=== PATIENT | male | born 1950 | race Caucasian/White ===

== ENCOUNTER 2023-12-26 20:06 | Inpatient (IN) | payer MEDICARE, OTHER, SELFPAY ==
[2023-12-26] VITALS (7 sets, daily range): BP systolic 131–166; BP diastolic 71–98; BMI 31.5
[2023-12-26 15:21] LABS: % Basophils 1.4 % (0-2); % Eosinophils 9.4 % (0-6); % Immature Granulocytes 0.5 % (0-0.5); % Lymphocytes 29.4 % (20.5-51.1); % Monocytes 13.3 % (1.7-9.3); Absolute Basophils 0.1 10^3/uL (0-0.2); Absolute Eosinophils 0.6 10^3/uL (0-0.7); Absolute Lymphocytes 1.9 10^3/uL (1.2-3.4); Absolute Monocytes 0.9 10^3/uL (0.1-0.6); Hematocrit 39.2 % (39.0-52.0); Hemoglobin 13.5 g/dL (13.0-18.0); Mean Corp Hgb Conc. 34.4 g/dL (33.0-37.0); Mean Corpuscular Hgb 31.8 pg (27.0-31.0); Mean Corpuscular Volume 92.5 fL (80.0-94.0); Mean Platelet Volume 10.1 fL (7.4-10.4); Nucleated Red Blood Cells % 0 % (-); Platelet Count 206 10^3/uL (130-400); Red Blood Cell Count 4.24 10^6/uL (4.70-6.10); Red Cell Dist. Width 14.1 % (11.5-14.5); White Blood Cell Count 6.5 10^3/uL (4.8-10.8)
[2023-12-26 15:30] LABS: ALT (SGPT) 38 U/L (0-50); AST (SGOT) 27 U/L (17-59); Albumin 4.2 g/dl (3.5-5.0); Alkaline Phosphatase 75 U/L (38-126); Blood Urea Nitrogen 13 mg/dl (9-20); Calcium 8.7 mg/dl (8.4-10.2); Carbon Dioxide 30 mmol/L (22-30); Chloride 103 mmol/L (98-107); Glucose 119 mg/dl (70-99); Potassium 4.3 mmol/L (3.5-5.1); Sodium 140 mmol/L (135-145); Total Bilirubin 0.4 mg/dl (0.2-1.3); Total Protein 6.4 g/dl (6.3-8.2); eGFR > 60.00
[2023-12-26 15:33] LABS: COVID-19 Antigen Negative (Negative)
--- NOTE | 2023-12-26 16:19 | ED.GENMED ---
History of Present Illness
General
Chief Complaint: Breathing Problem
Time Seen by Provider: 12/26/23 16:18
Travel History
Have you had any contact with someone who has COVID-19?: No
Do you have any symptoms of coronavirus? Fever > 100 degrees, chills, cough, shortness of breath, sore throat, loss of taste or smell, muscle aches, or headache?: No
History of Present Illness
History of Present Illness:
HPI: The patient presents due to shortness of breath that started over the past 24 hours. This is associated with cough. He had a similar episode about a month ago diagnosed with bronchitis. Initially presented to triage in no distress however on
my initial evaluation at 4:25 PM, he does appear to be mild to moderate distress. He smoked until 1979. He states that he had lobar pneumonia in about 1979 and had a valve replacement about 2 years ago.
EXAM:
GENERAL: Mild to moderate respiratory
HEENT: Moist oral mucosa
CARDIOVASCULAR: No murmurs, normal heart rate and rhythm, No chest wall tenderness
PULMONARY: Mild to moderate respiratory distress, conversational dyspnea, very decreased breath sounds with scant wheeze, wet sounding cough
ABDOMEN: Soft with no peritoneal signs, no tenderness
NEUROLOGIC: Excellent strength all extremities, no coordination deficits
PSYCHIATRIC: Appropriate mental status, normal insight and judgement
EXTREMITIES: Nontender, no edema, moves all extremities equally
SKIN: No rash, no lesions
ED COURSE:
4:25 PM: I initially evaluated patient
NUMBER AND COMPLEXITY OF PROBLEMS ADDRESSED AT THE ENCOUNTER
� Chronic conditions affecting care: High blood pressure, hyperlipidemia, pericarditis, valve surgery
� Acute Exacerbation and/or Progression of Chronic Illness: This is an acute problem but is had similar episode in the past
� Differential Diagnosis includes: Acute bronchitis, pneumonia, heart failure unlikely
AMOUNT AND/OR COMPLEXITY OF DATA TO BE REVIEWED AND ANALYZED
� I performed an independent evaluation of and my interpretation is:
EKG: Sinus 79, left axis deviation, nonspecific ST abnormality
CT:
X-rays: Chest x-ray clear
Laboratory Studies: CBC unremarkable, chemistries unremarkable, COVID/flu-negative,
Other:
� Review of other/old records: The patient was seen in the ED 1 month ago with diagnosis of
� Clinical information was obtained by an independent historian: I spoke to at bedside who states that Dr. Roberts is his hotel front desk clerk
� Prescriptions/Medications Considered but not given:
� Further testing considered but not performed:
RISK OF COMPLICATIONS AND/OR MORBIDITY OR MORTALITY OF PATIENT MANAGEMENT
� Social determinants of health affecting care: Lives at home
� Discussion with other providers: Hospitalist for admission at 5:20 PM.
� Escalation of care including admission/observation vs risk of discharge considered: Patient was given 3 DuoNebs and Solu-Medrol just after my initial evaluation as he had rather significant conversational dyspnea with very
decreased breath sounds. His room air sats with good waveform range anywhere from 87 to 97%. For the most part sats have been low despite initial documentation of 99%. Without oxygen, sats primarily in the 87 to 91% range. With oxygen he does
come up to 94%. He feels some improvement after nebs and Solu-Medrol were given. However he does not appear well enough to return home.
Past History
Past History
ED Past Medical History: HTN, Hypercholesterolemia and Valvular disease
ED Past Surgical History: Cardiac (Mitral valve repair)
Social History
Tobacco: Former smoker
Alcohol: None
Drug: None
Personal:
Living: with family
Employment: Employed
Family History
Family History: Negative Early CAD
Phy Exam
Physical Exam
Physical Exam:
See HPI
Scores
Heart Failure Risk
Heart Failure Risk Score: Not Applicable
Course
Orders/Labs/Results
Orders:
Orders
12/26/23 15:02
Electrocardiogram (*1) Urgent
Reason for Study: Shortness of Breath
EKG- Treatment ONCE
12/26/23 15:05
COVID-19 Antigen Urgent
Source: Nasal Swab
Complete Blood Count/With Diff Urgent
Comprehensive Metabolic Panel Urgent
Influenza A+B Rapid Molecular Urgent
BJ Source: Nasal Swab
Specimen Description:
12/26/23 16:25
Ipratropium/Albuterol Sulfate [Duoneb] 3 ml INH R NOW ONE
Ipratropium/Albuterol Sulfate [Duoneb] 9 ml .ROUTE .STK-MED ONE
12/26/23 16:26
Ipratropium/Albuterol Sulfate [Duoneb] 3 ml INH R NOW STA
Ipratropium/Albuterol Sulfate [Duoneb] 3 ml INH R NOW STA
MethylPREDNISolone PF [Solu-Medrol Pf] 125 mg IV NOW STA
12/26/23 16:31
CR Chest Portable - 1 View Urgent
Comment:
Reason For Exam: resp distress wheeze
Reason Study Needs to be Portable: Patient Unstable
Abnormal Lab Results
12/26/23
15:05
RBC 4.24 L 10^6/uL
(4.70-6.10)
MCH 31.8 H pg
(27.0-31.0)
Absolute Monos (auto) 0.9 H 10^3/uL
(0.1-0.6)
Monocytes % 13.3 H %
(1.7-9.3)
Eosinophils % 9.4 H %
(0-6)
Glucose 119 H mg/dl
(70-99)
12/26/23 15:05
12/26/23 15:05
Vital Signs
Initial and Last Documented VS:
Initial Vital Signs
Temp Pulse Resp BP Pulse Ox
98.2 F 80 18 162/96 99
12/26/23 14:59 12/26/23 14:59 12/26/23 14:59 12/26/23 14:59 12/26/23 14:59
Last Documented Vital Signs
Temp Pulse Resp BP Pulse Ox
98.2 F 80 18 162/96 99
12/26/23 14:59 12/26/23 14:59 12/26/23 14:59 12/26/23 14:59 12/26/23 14:59
*Critical Care Note
Total Time (30-74mins, 75-104mins- exclusive of procedures): Not Applicable
ED Attending Note
-
Portions of this chart may have been created with voice recognition software.� Occasional wrong word or��sound alike� substitutions may have occurred due to the inherent limitations of voice recognition software.
Discharge Plan
Departure
Patient Disposition: Admit
Date of Disposition: 12/26/23
Time of Disposition: 17:19
Presentation/result/management discussed w/ accepting MD/DO: Hospitalist
Discharge Problem:
Bronchitis
Prescriptions:
No Action
acetaminophen 325 MG tablet
650 mg PO 5/D
pravastatin 40 MG tablet
40 mg PO DAILY
amlodipine 5 MG tablet
5 mg PO DAILY
aspirin 81 MG tablet,delayed release (DR/EC)
81 mg PO DAILY
pantoprazole 40 MG tablet,delayed release (DR/EC)
40 mg PO DAILY
docusate sodium 100 MG capsule
200 mg PO BID
bisacodyl [Laxative (bisacodyl)] 5 MG tablet,delayed release (DR/EC)
5 mg PO DAILYPRN PRN (Reason: constipation)
metoprolol succinate 25 MG tablet extended release 24 hr
25 mg PO DAILY
multivitamin with folic acid [Tab-A-Artemio] 1 TABLET tablet
1 tab PO DAILY
furosemide 40 MG tablet
40 mg PO DAILY Qty: 30 11RF
cephalexin 500 MG capsule
500 mg PO QID Qty: 28 0RF
albuterol sulfate 2.5 mg /3 mL (0.083 %) solution for nebulization
2.5 mg inhalation Q4H PRN (Reason: shortness of breath or wheezing) Qty: 90 0RF
prednisone 10 mg tablet
10 mg PO QID Qty: 35 0RF
Rx Instructions:
4 pills a day for 3 days, 3 pills a day for 3 days, 2 pills a day for 3 days, 1 pill a day for 3 days,
Referrals:
UNKNOWN - PT NOT,INTERVIEWE [Family Provider] -
Interventions
Interventions:
*General Assessment Last Done: 12/26/23 14:59
*ED COVID-19 Vaccine History Last Done: 12/26/23 14:59
[2023-12-26] MEDS: SOLU-MEDROL PF 125 MG IV (16:33)
[2023-12-26] MEDS: DUONEB 3 ML INH ×4 (16:33→20:40)
--- NOTE | 2023-12-26 17:27 | HPS.HSE ---
Addendum entered and electronically signed by Kieran Chatterjee MD 12/26/23 18:26:
I saw and examined the patient.
The TALEND DEVELOPER's note was reviewed and I agree with the note.
Comment:
73-year-old male past medical history of valve replacement, pericarditis, tobacco abuse, who is presenting with acute altered shortness of breath. Patient stated shortness of breath woke him up from sleep at approximately 3 AM. Patient states of
severe cough associated with mucus production. Denies any chest pain or chest pressure. Denies any lower extremity edema. States chronic cough especially in the morning with last for approximately 30 minutes. States of postnasal drip.
General no acute distress, able to speak in complete sentences, not tachypneic
HEENT negative for stridor
Cardiac S1-S2 regular rate rhythm
Lungs positive expiratory bilateral wheezing, decreased aeration,
Abdomen positive bowel sounds soft nontender nondistended
Extremities no edema
Neuro awake alert and oriented
Impression
Acute hypoxic respiratory insufficiency likely secondary bronchitis versus rule out PE versus ACS
Bronchitis
Primary hypertension
History of pericarditis
History of tobacco abuse
Hyperlipidemia
Plan
Status post 125 mg Solu-Medrol
Start patient on Decadron 4 every 8 starting tomorrow
Bronchodilators
Sputum sample
Started on azithromycin
Check CT chest to rule out pulmonary embolism, pericardial etiology and or aortic etiology. Low likelihood.
Trend troponin
EKG with normal sinus rhythm. No acute ST or T wave changes. Incomplete right bundle branch block. No significant change compared to 11/25/2023.
Gentle IV fluids
Pulmonary evaluation
Continue home meds
DVT prophylaxis
Discussed with spouse at bedside in detail
I spent a total of 78 minutes with the patient or on the floor. More than 50% of this time involved counseling and coordination of care.
Original Note:
Family Physician
-
Family Physician: INTERVIEWE UNKNOWN - PT NOT
Chief Complaint
-
Shortness of breath, cough, wheezing
History of Present Illness
73-year-old male complaining of increased shortness of breath over the past 24 hours associated with a cough. Patient reports he woke up at 3 AM with wheezing, cough and shortness of breath only relieved for 2 hours with his albuterol nebulizer.
He reports this is similar to his episode of bronchitis he had approximately 1 month ago where he was given a Medrol Dosepak in the emergency room. He reports getting bronchitis every winter for the last several years. He also reports daily a.m.
chronic coughing he denies fever, chills, chest pain, palpitations, abdominal pain, nausea, vomiting, diarrhea, urinary symptoms.
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
Medical History
Past Medical History
Past Medical History: Reports Other
Additional Past Medical History:
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
HTN
HLD
mitral valve ring repair 2021
bronchitis
cardiomyopathy
former smoker until 1979.
Past Surgical History: Reports Other (MVR repair 2021, pericardial effusion with pericardiocentesis 360 cc)
Social History
Tobacco: Former Smoker (11 years 1 pack a day quit 1979)
Alcohol: Daily (4 beers 3 days a week)
Drug: None
Personal:
Living: With Family
Employment: Retired
Family History
Family History: Early CAD (Father GA age 52) and Other (Mother GA and unknown type of cancer)
Allergies / Home Medications
Allergies reflects when Allergies were last updated in [employer].
Home Medications with original date entered in [employer]
Allergy/Medication List:
Allergies
Allergy/AdvReac Type Severity Reaction Status Date / Time
Penicillins Allergy Unknown Verified 11/25/23 22:07
Home Medications
acetaminophen 500 mg tablet (Tylenol Extra Strength) 1,000 mg PO DAILYPRN PRN mild pain 12/26/23
albuterol sulfate 2.5 mg/3 mL (0.083 %) solution for nebulization 2.5 mg inhalation R QIDPRN PRN sob 12/26/23
albuterol sulfate 90 mcg/actuation aerosol inhaler 2 puff inhalation R Q4HPRN PRN sob/wheezing 12/26/23
amlodipine 5 mg tablet 5 mg PO DAILY 12/26/23
aspirin 81 mg tablet,delayed release 81 mg PO DAILY 12/26/23
glucosamine-chondroitin 250 mg-200 mg tablet (Osteo Bi-Flex) 1 tab PO DAILY 12/26/23
pantoprazole 40 mg tablet,delayed release 40 mg PO DAILY 12/26/23
pravastatin 80 mg tablet 80 mg PO DAILY 12/26/23
therapeutic multivitamin 1 tab PO DAILY 12/26/23
Review of Systems
-
History Source: Patient and Family ()
A 12 point ROS was completed and negative except as noted: Yes
Constitutional: Denies Fever or Fatigue
EENT: Denies Sore Throat or Runny Nose
Respiratory: Reports Cough (Productive yellow in color) and Trouble Breathing (Wheezing)
Cardiac: Denies Chest Pain, Diaphoresis, Palpitations or Syncope
Abdomen/GI: Denies Abdominal Pain, Nausea, Vomiting, Diarrhea, Constipated, Bloody Stools or Black Stools
: Denies Dysuria, Frequency, Flank Pain, Incontinence, Difficulty Voiding or Urgency
Musculoskeletal: Denies Joint Pain or Edema
Skin: Denies Itching or Rash
Neurological: Denies Dizzy, Headache or Weakness
Endocrine: Reports No Symptoms
Hematologic/Lymphatic: Reports No Symptoms
Psych: Reports Calm
Physical Exam
Vital Signs
Vital Signs
Temp Pulse Resp BP Pulse Ox
98.2 F 106 19 135/95 94
12/26/23 14:59 12/26/23 17:15 12/26/23 17:15 12/26/23 17:14 12/26/23 17:24
Physical Exam
General: Comfortable, Conversant and Obese; No Pain, Fever or Chills
HEENT: NormoCephalic, Anicteric, PERRLA, P[place]on Conjunctivae, No Ptosis and Oxygen (2 lnc )
Respiratory: Wheezes (Diffuse expiratory) and Decreased Breath Sounds; No Rales or Rhonchi
Cardiac: S1/S2 and Tachycardia; No Murmur, Rub, Gallop or Peripheral Edema
Breast: Deferred by me
GI: Soft, Non Tender, Non Distended, Normal Bowel Sounds and No Hepatosplenomegaly
Rectal: Deferred by Provider
Genito-urinary: Deferred by me
Musculoskeletal: No Clubbing, No Cyanosis and No Edema
Skin: Warm and Dry; No Rash or Jaundice
Neuro: AO x 3, No Motor Deficits, Nonfocal/grossly intact and No Sensory Deficits; No Slurred Speech, Facial Droop, Tremors or Sedated
Psych: Calm
Laboratory Results
-
12/26/23 15:05
12/26/23 15:05
Laboratory Results
Total Bilirubin 0.4 mg/dl (0.2-1.3) 12/26/23 15:05
AST 27 U/L (17-59) 12/26/23 15:05
ALT 38 U/L (0-50) 12/26/23 15:05
Alkaline Phosphatase 75 U/L (38-126) 12/26/23 15:05
Impression/Plan
-
Impression/plan:
Admit to MedSurg
#Acute hypoxic resp insuff 12/10 to Acute bronchitis
#Bronchitis, treated 1 month ago/Former smoker until 1979
87% RA, 94% on 2lnc
COVID/FLU -negative
-DuoNebs scheduled and as needed
-IV Decadron 4 mg every 8 hours
-Sputum culture
-Zithromax 500 then to 50 mg daily
-Consult pulmonary
-Check troponins
-Check CT PE study
CXR: No acute cardiopulmonary process
#HTN�benign
135/95
-Continue amlodipine 5 mg daily, aspirin 81 mg daily
#HLD
-Check lipid profile
-Continue pravastatin
#Pericarditis Hx with cardiac tamponade Hx/Rocky's syndrome
#Cardiomyopathy
#MVR 2021
2D echo 10/14/2022: EF 40-45%, mild global hypokinesis, mild reduced systolic function, mild LVH, diastolic function indeterminant, status post number 23 mm mitral valve ring repair, trace MR
#GERD
-Continue Protonix 40 mg daily
#Obesity due to excess calorie consumption
Healthy heart diet, weight loss recommended
DVT prophylaxis
Subcu Lovenox bowel CT PE chest pending
Full code
--- NOTE | 2023-12-26 18:08 | PHANOTE ---
Addendum entered by Gomez Torrez 12/26/23 18:25:
12/26/2023, med rec tech, pt. is unsure of Amlodipine strength but states that he takes one tablet daily.
Original Note:
12/26/2023, med rec tech, spoke to pt. to obtain their med. history; pt. states to be taking Amlodipine 5 mg daily; however, I could not find this med. in pt.'s pharmacy fill data or using [facility] records so I was not able to confirm it. Pt.'s pharmacy
([address], [place] [address]; phone: [phone]) was closed at time of interview.
[2023-12-26] MEDS: ZITHROMAX 500 MG PO (18:26)
[2023-12-26] MEDS: NSS 1000 IV (18:56)
[2023-12-26 19:16] LABS: Troponin I 0.013 ng/ml
--- NOTE | 2023-12-26 22:27 | PTCARENOTE ---
Pt arrived to 3W from ED via stretcher. Pt independent from stretcher to bed, vitals obtained and stable. Pt AAOX3, oriented to room and call dia within reach. Pleasant and cooperative, will continue to monitor.
[2023-12-27 00:05] LABS: Troponin I 0.016 ng/ml
[2023-12-27 03:33] VITALS: BP 162/91
[2023-12-27 05:50] LABS: % Basophils 0.4 % (0-2); % Eosinophils 0.2 % (0-6); % Immature Granulocytes 0.6 % (0-0.5); % Lymphocytes 13.5 % (20.5-51.1); % Monocytes 2.9 % (1.7-9.3); % Neutrophils 82.4 % (42.2-75.2); Absolute Lymphocytes 0.7 10^3/uL (1.2-3.4); Absolute Monocytes 0.2 10^3/uL (0.1-0.6); Absolute Neutrophils 4.3 10^3/uL (1.4-6.5); Hematocrit 39.2 % (39.0-52.0); Hemoglobin 13.5 g/dL (13.0-18.0); Mean Corp Hgb Conc. 34.4 g/dL (33.0-37.0); Mean Corpuscular Hgb 31.9 pg (27.0-31.0); Mean Corpuscular Volume 92.7 fL (80.0-94.0); Mean Platelet Volume 10.4 fL (7.4-10.4); Nucleated Red Blood Cells % 0 % (-); Platelet Count 203 10^3/uL (130-400); Red Blood Cell Count 4.23 10^6/uL (4.70-6.10); Red Cell Dist. Width 13.9 % (11.5-14.5); White Blood Cell Count 5.2 10^3/uL (4.8-10.8)
[2023-12-27 06:00] VITALS: BMI 31.5
[2023-12-27 06:08] LABS: Troponin I 0.013 ng/ml
[2023-12-27 06:39] LABS: Blood Urea Nitrogen 15 mg/dl (9-20); Calcium 8.9 mg/dl (8.4-10.2); Carbon Dioxide 27 mmol/L (22-30); Chloride 102 mmol/L (98-107); Estimated Creatinine Clearance > 125 ml/min; Glucose 165 mg/dl (70-99); HDL Cholesterol 60 mg/dl; LDL Cholesterol, Calculated 60 mg/dl; Potassium 4.4 mmol/L (3.5-5.1); Sodium 137 mmol/L (135-145); Total Cholesterol 129 mg/dl (50-199); Triglyceride 48 mg/dl (10-149); Very Low Density Lipoprotein 9 mg/dl (0-30); eGFR > 60.00
[2023-12-27 07:00] VITALS: BP 149/99
[2023-12-27] MEDS: DUONEB 3 ML INH ×2 (08:19→11:57)
[2023-12-27] MEDS: PRAVACHOL 80 MG PO (08:54)
[2023-12-27] MEDS: PROTONIX 40 MG PO (08:54)
[2023-12-27] MEDS: DECADRON 4 MG IV (08:55)
[2023-12-27] MEDS: THERAGRAN 1 TABLET PO (08:55)
[2023-12-27] MEDS: ZITHROMAX 250 MG PO (08:55)
[2023-12-27] MEDS: NORVASC 5 MG PO (08:55)
[2023-12-27] MEDS: ASPIR LOW (ENTERIC COATED) 81 MG PO (08:55)
[2023-12-27 09:41] VITALS: BP 157/89; PULSE 89; O2SAT 96
[2023-12-27 09:44] VITALS: BP 157/89; PULSE 89; O2SAT 96
--- NOTE | 2023-12-27 10:02 | PTOTSP ---
PATIENT ABLE TO MOBILIZE INDEPENDENTLY ON LEVEL SURFACES WELL A CURB ELEVATION WITH NO OXYGEN/ON ROOM AIR WITH SPO2-95%. NO COMPLAINTS OF SHORTNESS OF BREATH. RN AWARE AND PATIENT REMAINED ON ROOM AIR AT END OF SESSION. WILL DISCHARGE FROM
[facility]UTE [facility] SKILLED P.T. SERVICES AT THIS TIME. ENCOURAGED PATIENT TO AMBULATE IN HALLS AD [facility]PITO. RN AWARE.
[2023-12-27 11:00] VITALS: BP 138/78
--- NOTE | 2023-12-27 11:28 | W.PN.HOSP.TC ---
Today's Communication/Plan
-
Ambulatory pulse ox on room air
Discharge
Assessment / Plan
Assessment / Plan
Gen-AAOx3, NAD, obese
HEENT-NC, AT, anicteric, clear oral mm
Neck-supple
CV-reg, no M, +S1/S2
Lungs-clear B/L
Abd-soft, NT, ND
Ext-no edema
Musculoskeletal-no cyanosis, clubbing
Skin-warm and dry
Neuro-grossly non-focal
Psych-calm, cooperative
Acute COPD exacerbation -with acute bronchitis. No evidence of pneumonia. Clinically improving. Wheezing resolved. Check ambulatory pulse ox on room air. Awaiting pulmonary input. Anticipate discharge later today. CT chest on admission
negative for pulmonary embolism. Does show chronic right hemidiaphragm elevation. Small chronic appearing pleural defect at the anterior aspect of the right middle lobe with adjacent linear scarring.
Follow-up with pulmonary and PCP.
Former smoker, quit in 1979.
Essential hypertension
Hyperlipidemia -continue Pravachol.
History of pericarditis
Obesity due to excess calories
Full code
Dispo -anticipate discharge later today. Outpatient follow-up.
Anticipated Discharge: Today
Subjective/Interval History
-
Date of Service: December 27, 2023
Patient seen and examined. Feeling better. Denies shortness of breath with walking today.
Objective Data
-
Labs:
Laboratory Results
12/27/23
05:21
WBC 5.2
Hgb 13.5
Hct 39.2
Plt Count 203
Sodium 137
Potassium 4.4
Chloride 102
Carbon Dioxide 27
BUN 15
Creatinine 0.6 L
Glucose 165 H
Calcium 8.9
Vital Signs:
Vital Signs
Temp Pulse Resp BP Pulse Ox
97.6 F 86 19 138/78 96
12/27/23 11:00 12/27/23 11:00 12/27/23 11:00 12/27/23 11:00 12/27/23 11:00
Review of Systems
-
History Source: Patient
All other systems: Reviewed and negative
--- NOTE | 2023-12-27 11:37 | W.DS.TRANS ---
DC Summary - [employer]
-
Discharge Instructions:
Discharge Diagnosis/Procedures Acute COPD exacerbation
Diet Low Fat,Low Cholesterol
Activity As tolerated
Driving Restrictions As prior to admission
Bathing Restrictions None
Instructions:
Stand-Alone Forms:
Changes to Home Medications: No
Discharge Medications:
DC Medications w/original date entered in [employer]
acetaminophen 500 mg tablet (Tylenol Extra Strength) 1,000 mg PO DAILYPRN PRN mild pain 12/26/23
albuterol sulfate 2.5 mg/3 mL (0.083 %) solution for nebulization 2.5 mg inhalation R QIDPRN PRN sob 12/26/23
albuterol sulfate 90 mcg/actuation aerosol inhaler 2 puff inhalation R Q4HPRN PRN sob/wheezing 12/26/23
amlodipine 1 tab PO DAILY Blood Pressure 12/26/23
aspirin 81 mg tablet,delayed release 81 mg PO DAILY Blood Clot Prevention/Tx 12/26/23
glucosamine-chondroitin 250 mg-200 mg tablet (Osteo Bi-Flex) 1 tab PO DAILY Supplement 12/26/23
pantoprazole 40 mg tablet,delayed release 40 mg PO DAILY Gastrointestinal Issue 12/26/23
pravastatin 80 mg tablet 80 mg PO DAILY High Cholesterol 12/26/23
therapeutic multivitamin 1 tab PO DAILY Supplement 12/26/23
azithromycin 250 mg tablet 250 mg PO DAILY #3 tabs 12/27/23
prednisone 10 mg tablet 10 mg PO DIRECTED #30 tabs 12/27/23
Home Medication Changes
Pending Results: No
--- NOTE | 2023-12-27 11:59 | CM ---
Addendum entered by Samantha Hilton 12/27/23 12:26:
PCP - Dr Dangelo York
Pharm - [facility]
Original Note:
Chart reviewed. Spoke with pt and at bedside
Pt lives with his in a one story home
Has a nebulizer at home
Denies past SNF/HH
Has ride at d/c
Discussed IMM
Plan - Home to previous setting - no needs
== END 2023-12-27 15:20 | disposition home or self-care (01) | DRG 191 ==
LOC: 3 WEST ACU 20:06
PROVIDERS: Clinical Nurse Specialist Family Health; ADMITTING PHYSICIAN Hospitalist; ATTENDING PHYSICIAN Hospitalist; EMERGENCY PHYSICIAN Emergency Medicine
DX: J44.0 Chronic obstructive pulmonary disease with (acute) lower respiratory infection (principal); I42.9 Cardiomyopathy, unspecified; J20.9 Acute bronchitis, unspecified; J44.1 Chronic obstructive pulmonary disease with (acute) exacerbation; Z11.52 Encounter for screening for COVID-19; R09.02 Hypoxemia; R06.89 Other abnormalities of breathing; I10 Essential (primary) hypertension; Z87.891 Personal history of nicotine dependence; E78.00 Pure hypercholesterolemia, unspecified; K21.9 Gastro-esophageal reflux disease without esophagitis; E66.9 Obesity, unspecified; Z68.31 Body mass index [BMI] 31.0-31.9, adult
CPT/HCPCS: 71045; 71275; 80048; 80053; 80061; 84484; 85025; 87070; 87205; 87502; 87811; 93005; 94640; 96374; 97161; 97165; 99285; Q9967

== ENCOUNTER → 2024-01-25 13:43 | Outpatient (REF) | payer MEDICARE, OTHER, SELFPAY | LOC: RAD 13:43 | PROVIDERS: ATTENDING PHYSICIAN Internal Medicine Critical Care Medicine; FAMILY PHYSICIAN Internal Medicine | DX: J98.4 Other disorders of lung (principal); J98.6 Disorders of diaphragm | CPT/HCPCS: 71046; 76000 ==

== ENCOUNTER → 2024-04-06 12:47 | Outpatient (REF) | payer MEDICARE, OTHER, SELFPAY | LOC: RCS 12:47 | PROVIDERS: ATTENDING PHYSICIAN Internal Medicine Cardiovascular Disease; FAMILY PHYSICIAN Internal Medicine | DX: J44.9 Chronic obstructive pulmonary disease, unspecified (principal); R06.02 Shortness of breath | CPT/HCPCS: 93306 ==

== ENCOUNTER → 2024-06-20 06:59 | Outpatient (REF) | payer MEDICARE, OTHER, SELFPAY ==
[2024-06-20 09:10] LABS: ALT (SGPT) 39 U/L (0-50); AST (SGOT) 27 U/L (17-59); Albumin 4.2 g/dl (3.5-5.0); Alkaline Phosphatase 85 U/L (38-126); Blood Urea Nitrogen 16 mg/dl (9-20); Calcium 9.4 mg/dl (8.4-10.2); Carbon Dioxide 26 mmol/L (22-30); Chloride 104 mmol/L (98-107); Glucose 103 mg/dl (70-99); Potassium 4.5 mmol/L (3.5-5.1); Sodium 139 mmol/L (135-145); Total Bilirubin 0.4 mg/dl (0.2-1.3); Total Protein 6.6 g/dl (6.3-8.2); eGFR > 60.00
[2024-06-20 09:39] LABS: D-Dimer 2.66 ug/mlFEU (0.00-0.50)
== END ==
LOC: RAD 06:59
PROVIDERS: ATTENDING PHYSICIAN Internal Medicine Critical Care Medicine; FAMILY PHYSICIAN Internal Medicine
DX: R07.81 Pleurodynia (principal)
CPT/HCPCS: 36415; 71101; 80053; 85379

== ENCOUNTER 2024-08-10 09:00 | Outpatient (RCR) | payer MEDICARE, OTHER, SELFPAY | END 2024-08-10 23:59 | disposition home or self-care (01) | LOC: PURB 09:00 | PROVIDERS: ATTENDING PHYSICIAN Internal Medicine Critical Care Medicine; FAMILY PHYSICIAN Internal Medicine | DX: J44.9 Chronic obstructive pulmonary disease, unspecified (principal) | CPT/HCPCS: G0237 ==

== ENCOUNTER 2024-10-03 10:45 | Outpatient (RCR) | payer MEDICARE, OTHER, SELFPAY | END 2024-10-07 23:59 | disposition home or self-care (01) | LOC: PURB 10:45 | PROVIDERS: ATTENDING PHYSICIAN Internal Medicine Critical Care Medicine; FAMILY PHYSICIAN Internal Medicine | DX: J44.0 Chronic obstructive pulmonary disease with (acute) lower respiratory infection (principal); J20.9 Acute bronchitis, unspecified | CPT/HCPCS: G0239 ==

== ENCOUNTER 2024-10-24 10:45 | Outpatient (RCR) | payer MEDICARE, OTHER, SELFPAY | END 2024-10-24 23:59 | disposition home or self-care (01) | LOC: PURB 10:45 | PROVIDERS: ATTENDING PHYSICIAN Internal Medicine Critical Care Medicine; FAMILY PHYSICIAN Internal Medicine | DX: J44.9 Chronic obstructive pulmonary disease, unspecified (principal) | CPT/HCPCS: G0239 ==

== ENCOUNTER → 2024-11-17 08:50 | Outpatient (REF) | payer MEDICARE, OTHER, SELFPAY ==
[2024-11-17 09:46] LABS: % Basophils 2.2 % (0-2); % Eosinophils 8.7 % (0-6); % Immature Granulocytes 0.3 % (0-0.5); % Lymphocytes 26.7 % (20.5-51.1); % Monocytes 12.3 % (1.7-9.3); % Neutrophils 49.8 % (42.2-75.2); Absolute Basophils 0.2 10^3/uL (0-0.2); Absolute Eosinophils 0.6 10^3/uL (0-0.7); Absolute Lymphocytes 1.8 10^3/uL (1.2-3.4); Absolute Monocytes 0.8 10^3/uL (0.1-0.6); Absolute Neutrophils 3.4 10^3/uL (1.4-6.5); Hematocrit 42.1 % (39.0-52.0); Hemoglobin 14.4 g/dL (13.0-18.0); Mean Corp Hgb Conc. 34.2 g/dL (33.0-37.0); Mean Corpuscular Hgb 31.1 pg (27.0-31.0); Mean Corpuscular Volume 90.9 fL (80.0-94.0); Mean Platelet Volume 10.7 fL (7.4-10.4); Nucleated Red Blood Cells % 0 % (-); Platelet Count 181 10^3/uL (130-400); Red Blood Cell Count 4.63 10^6/uL (4.70-6.10); Red Cell Dist. Width 14.7 % (11.5-14.5); White Blood Cell Count 6.8 10^3/uL (4.8-10.8)
[2024-11-17 10:19] LABS: Urine Albumin Negative (Neg - Trace); Urine Bilirubin Negative (Negative); Urine Character Clear (Clear); Urine Color Yellow; Urine Glucose Negative (Negative); Urine Ketone Negative (Negative); Urine Leukocyte Negative (Negative); Urine Nitrite Negative (Negative); Urine Occult Blood Negative (Negative); Urine Urobilinogen Negative (Neg - 1+)
[2024-11-17 10:20] LABS: ALT (SGPT) 56 U/L (0-50); AST (SGOT) 38 U/L (17-59); Albumin 4.5 g/dl (3.5-5.0); Alkaline Phosphatase 69 U/L (38-126); Blood Urea Nitrogen 15 mg/dl (9-20); Calcium 8.7 mg/dl (8.4-10.2); Carbon Dioxide 31 mmol/L (22-30); Chloride 102 mmol/L (98-107); Free T4 1.21 ng/dl (0.78-2.19); Glucose 103 mg/dl (70-99); HDL Cholesterol 46 mg/dl; LDL Cholesterol, Calculated 64 mg/dl; Potassium 4.3 mmol/L (3.5-5.1); Sodium 141 mmol/L (135-145); Total Bilirubin 0.5 mg/dl (0.2-1.3); Total Cholesterol 133 mg/dl (50-199); Total Protein 6.7 g/dl (6.3-8.2); Triglyceride 118 mg/dl (10-149); Very Low Density Lipoprotein 23 mg/dl (0-30); Vitamin D, 25-OH*** 43.8 ng/mL (30-80); eGFR > 60.00
[2024-11-17 10:33] LABS: PSA, Total - Diagnostic 0.91 ng/ml (0.0-4.0); TSH 1.92 uIU/ml (0.47-4.68)
[2024-11-17 11:07] LABS: Erythrocyte Sed Rate 8 mm/hour (0-20)
[2024-11-17 12:14] LABS: Glycohemoglobin (HgbA1c) 5.9 % (4.0-5.6)
== END ==
LOC: REG 08:50
PROVIDERS: ATTENDING PHYSICIAN Internal Medicine
DX: Z00.00 Encounter for general adult medical examination without abnormal findings (principal); J44.9 Chronic obstructive pulmonary disease, unspecified; M17.12 Unilateral primary osteoarthritis, left knee; F34.1 Dysthymic disorder; I70.0 Atherosclerosis of aorta; I34.1 Nonrheumatic mitral (valve) prolapse; I25.83 Coronary atherosclerosis due to lipid rich plaque; N40.0 Benign prostatic hyperplasia without lower urinary tract symptoms; I27.20 Pulmonary hypertension, unspecified; E78.5 Hyperlipidemia, unspecified; I10 Essential (primary) hypertension; Z23 Encounter for immunization; Z12.11 Encounter for screening for malignant neoplasm of colon; R79.9 Abnormal finding of blood chemistry, unspecified; E55.9 Vitamin D deficiency, unspecified
CPT/HCPCS: 36415; 80053; 80061; 81003; 82306; 83036; 84153; 84439; 84443; 85025; 85652; 86140